=== PATIENT | female | born 1935 | race Caucasian/White ===

== ENCOUNTER → 2021-01-09 | Outpatient (CLI) | payer MEDICARE, BC | LOC: M WUC 09:50 | PROVIDERS: ATTEND Internal Medicine | DX: R05 Cough (principal) ==

== ENCOUNTER → 2021-01-26 | Outpatient (CLI) | payer MEDICARE, BC ==
[~2021-01-26] MED LIST: ISOVUE-370 76% 100ML VIAL ONE
--- NOTE | 2021-01-26 16:42 | REP ---
INDICATION: COUGH, ABNORMAL CXR COMPARISON: None. TECHNIQUE: Standard helical technique before and after the administration of 100 cc of Isovue 370 intravenously FINDINGS: The maximal AP dimension of the aortic root is 4.2 cm. The aorta is otherwise unremarkable. There is no mediastinal or hilar adenopathy. There are no pleural or pericardial effusions. The imaged upper abdomen is within normal limits. The imaged osseous structures are within normal limits for the patient's age of 85 years. Evaluation of the lung woodruff shows no abnormal nodules, masses, or opacities. IMPRESSION: Aortic root measurement upper limits of normal. Consider follow-up. <Electronically signed by Kojo Waller > 01/26/21 7121
== END ==
LOC: M PLAIMG 14:41
PROVIDERS: ATTEND Internal Medicine
DX: R05 Cough (principal)
CPT/HCPCS: 71270; Q9967

== ENCOUNTER → 2022-02-10 | Outpatient (CLI) | payer MEDICARE, BC | LOC: M WUC 13:08 | PROVIDERS: ATTEND Internal Medicine | DX: L03.221 Cellulitis of neck (principal) ==